=== PATIENT | male | born 1940 | race Caucasian/White ===

== ENCOUNTER → 2017-12-31 08:11 | Outpatient (CLI) | payer OTHER, SELFPAY ==
[2017-12-31 09:31] LABS: Add Manual Diff / Slide Review NO; Basophils Percent Auto 0.3 % (0-2); Eosinophils Percent Auto 2.8 % (2-4); Hematocrit 44.4 % (41-53); Hemoglobin 15.3 g/dL (13.5-17.5); Lymphocytes Percent Auto 17.2 % (25-40); Mean Corpuscular HGB Conc 34.4 % (30-36); Mean Corpuscular Hemoglobin 31.9 PG (26-34); Mean Corpuscular Volume 92.8 fL (80-100); Monocytes Percent Auto 15.3 % (3-14); Neutrophils Absolute Auto 3200 /uL (3000-5900); Neutrophils Percent Auto 64.4 % (50-75); Platelet Count 129 X10^3/uL (150-400); Red Blood Cell Count 4.78 X10^6/uL (4.5-5.9); Red Cell Distribution Width 13.3 % (11.6-14.8)
[2017-12-31 09:56] LABS: Alanine Aminotransferase 32 IU/L (21-72); Albumin 4.2 g/dL (3.5-5.0); Alkaline Phosphatase 71 U/L (38-126); Aspartate Aminotransferase 28 IU/L (17-59); Blood Urea Nitrogen 26 mg/dL (9-20); Calcium 9.3 mg/dL (8.4-10.2); Carbon Dioxide 32 mmol/L (22-32); Chloride 103 mmol/L (98-107); Cholesterol 158 mg/dL (140-199); Estimated Glomerular Filt Rate > 60.0 mL/min (>60); Globulin 2.1 g/dL (1.7-4.1); Glucose 87 mg/dL (80-110); HDL Cholesterol 38 mg/dL (40-60); HEMOLYSIS < 15 (0-50); LDL Cholesterol Calculated 98 mg/dL (<100); Potassium 4.5 mmol/L (3.4-5.1); Sodium 145 mmol/L (137-145); Total Protein 6.3 g/dL (6.3-8.2); Triglycerides 111 mg/dL (35-150)
[2017-12-31 10:18] LABS: Prostate Specific Antigen Scrn 0.824 ng/mL (0.1-4.0)
[2017-12-31 10:25] LABS: Thyroid Stimulating Hormone 3.42 uIU/mL (0.47-4.68)
== END ==
PROVIDERS: PCP Family Medicine; Visit Provider Family Medicine
DX: E78.5 Hyperlipidemia, unspecified (principal); N40.0 Benign prostatic hyperplasia without lower urinary tract symptoms; Z12.5 Encounter for screening for malignant neoplasm of prostate
CPT/HCPCS: 36415; 80053; 80061; 84443; 85025; G0103

== ENCOUNTER → 2018-01-08 13:06 | Outpatient (CLI) | payer OTHER, SELFPAY ==
[2018-01-13 15:32] LABS: Fecal Immunochemical Test NOT DETECTED
== END ==
PROVIDERS: PCP Family Medicine; Visit Provider Family Medicine
DX: Z12.11 Encounter for screening for malignant neoplasm of colon (principal)
CPT/HCPCS: 82274

== ENCOUNTER → 2018-06-24 08:03 | Outpatient (CLI) | payer MEDICARE, SELFPAY ==
[2018-06-24 09:24] LABS: Add Manual Diff / Slide Review NO; Basophils Absolute Auto 0 /uL (0-100); Basophils Percent Auto 0.3 % (0-2); Eosinophils Absolute Auto 200 /uL (0-450); Eosinophils Percent Auto 3.4 % (2-4); Hemoglobin 15.2 g/dL (13.5-17.5); Lymphocytes Absolute Auto 900 /uL (1100-4500); Lymphocytes Percent Auto 20.7 % (25-40); Mean Corpuscular HGB Conc 33.8 % (30-36); Mean Corpuscular Hemoglobin 31.9 PG (26-34); Mean Corpuscular Volume 94.2 fL (80-100); Monocytes Absolute Auto 700 /uL (0-900); Monocytes Percent Auto 15.5 % (3-14); Neutrophils Absolute Auto 2800 /uL (1500-7000); Neutrophils Percent Auto 60.1 % (50-75); Platelet Count 125 X10^3/uL (150-400); Red Blood Cell Count 4.78 X10^6/uL (4.5-5.9); Red Cell Distribution Width 13.6 % (11.6-14.8); White Blood Cell Count 4.6 X10^3/uL (4.5-11.0)
[2018-06-24 09:31] LABS: Alanine Aminotransferase 25 IU/L (21-72); Albumin 4.3 g/dL (3.5-5.0); Alkaline Phosphatase 68 U/L (38-126); Aspartate Aminotransferase 28 IU/L (17-59); Bilirubin Total 0.8 mg/dL (0.2-1.3); Blood Urea Nitrogen 25 mg/dL (9-20); Calcium 9.3 mg/dL (8.4-10.2); Carbon Dioxide 31 mmol/L (22-32); Chloride 102 mmol/L (98-107); Estimated Glomerular Filt Rate > 60.0 mL/min (>60); Globulin 2.1 g/dL (1.7-4.1); Glucose 84 mg/dL (80-110); HEMOLYSIS < 15 (0-50); Potassium 4.3 mmol/L (3.4-5.1); Sodium 140 mmol/L (137-145); Total Protein 6.4 g/dL (6.3-8.2)
[2018-06-26 13:10] LABS: Beta-2-Microglobulin 2.63 mg/L (< 2.52)
[2018-06-26 13:50] LABS: Free Kappa Light Chain 10.1 mg/L (3.3-19.4); Free Kappa/ Lambda Ratio 1.19 (0.26-1.65); Free Lambda 8.4 mg/L (5.7-26.3)
[2018-07-03 00:45] LABS: Albumin 4.1 g/dL (3.8-4.8); Alpha 1 Globulin 0.3 g/dL (0.2-0.3); Alpha 2 Globulin 0.7 g/dL (0.5-0.9); Beta 1 Globulin 0.4 g/dL (0.4-0.6); Gamma Globulin 0.4 g/dL (0.8-1.7); Protein, Total 6.1 g/dL (6.1-8.1)
== END ==
PROVIDERS: PCP Family Medicine
DX: C85.90 Non-Hodgkin lymphoma, unspecified, unspecified site (principal)
CPT/HCPCS: 36415; 80053; 82232; 83883; 84155; 84165; 85025

== ENCOUNTER → 2018-12-28 07:38 | Outpatient (CLI) | payer MEDICARE, SELFPAY ==
[2018-12-28 08:17] LABS: Alanine Aminotransferase 27 IU/L (21-72); Albumin Globulin Ratio 1.8 (1.0-2.8); Alkaline Phosphatase 79 U/L (38-126); Aspartate Aminotransferase 27 IU/L (17-59); Bilirubin Total 0.7 mg/dL (0.2-1.3); Blood Urea Nitrogen 27 mg/dL (9-20); Calcium 9.4 mg/dL (8.4-10.2); Carbon Dioxide 34 mmol/L (22-32); Chloride 102 mmol/L (98-107); Cholesterol 186 mg/dL (140-199); Estimated Glomerular Filt Rate > 60.0 mL/min (>60); Globulin 2.2 g/dL (1.7-4.1); Glucose 91 mg/dL (80-110); HDL Cholesterol 36 mg/dL (40-60); HEMOLYSIS < 15 (0-50); LDL Cholesterol Calculated 117 mg/dL (<100); Potassium 4.5 mmol/L (3.4-5.1); Sodium 140 mmol/L (137-145); Total Protein 6.2 g/dL (6.3-8.2); Triglycerides 165 mg/dL (35-150)
[2018-12-28 08:19] LABS: Add Manual Diff / Slide Review NO; Basophils Absolute Auto 0 /uL (0-100); Basophils Percent Auto 0.4 % (0-2); Eosinophils Absolute Auto 300 /uL (0-450); Hemoglobin 15.3 g/dL (13.5-17.5); Lymphocytes Absolute Auto 800 /uL (1100-4500); Lymphocytes Percent Auto 16.8 % (25-40); Mean Corpuscular HGB Conc 33.9 % (30-36); Mean Corpuscular Volume 94.4 fL (80-100); Monocytes Absolute Auto 700 /uL (0-900); Monocytes Percent Auto 14.7 % (3-14); Neutrophils Absolute Auto 3200 /uL (1500-7000); Neutrophils Percent Auto 63.1 % (50-75); Platelet Count 107 X10^3/uL (150-400); Red Blood Cell Count 4.77 X10^6/uL (4.5-5.9); Red Cell Distribution Width 13.2 % (11.6-14.8)
[2018-12-28 08:45] LABS: Prostate Specific Antigen Scrn 0.801 ng/mL (0.1-4.0)
[2018-12-28 09:24] LABS: TSH w/ Reflex to FT4 4.51 uIU/mL (0.47-4.68)
== END ==
PROVIDERS: PCP Family Medicine; Visit Provider Family Medicine
DX: C85.90 Non-Hodgkin lymphoma, unspecified, unspecified site (principal); E78.5 Hyperlipidemia, unspecified; N40.0 Benign prostatic hyperplasia without lower urinary tract symptoms; Z12.5 Encounter for screening for malignant neoplasm of prostate
CPT/HCPCS: 36415; 80053; 80061; 84443; 85025; G0103

== ENCOUNTER → 2019-09-28 16:37 | Oncology outpatient (ONC) | payer MEDICARE, SELFPAY ==
[2018-07-08 10:46] VITALS: BP 112/62; PULSE 67; RESP 18; TEMP 36.4; O2SAT 96
--- NOTE | 2018-07-08 15:19 | ONC.PN ---
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 Previous treatment: 1. Six cycles of Treanda and Rituxan finishing February 2010. 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 2. Maintenance Rituxan finishing in February 2012. Interval history: The patient is a 77-year-old man who returns today for follow-up. Since his last visit here a year ago, he has been feeling generally well and has no specific complaints today. His strength and energy level been stable. He has not noticed any adenopathy. No fevers chills or sweats. No shortness of breath or cough. No GI complaints. He has not had any recurrence of his neuropathy symptoms. Overall, he is feeling quite well. His medications include Flomax Lipitor and Proscar. He does take quinine and a multivitamin as needed. - Patient Self-Reported Symptoms SR Musculoskeletal issues: Muscle pain or cramps Home Medications and Allergies Home Medications Medication Instructions Recorded Confirmed Type CA PANTOTHENATE/FOLIC ACID/VIT 1 tab PO QDAY #0 08/10/12 07/08/18 History (MULTIVITAMIN) [QUININE SULFATE ] 300 mg PO QDAY #120 tab 01/02/18 07/08/18 Rx atorvastatin 10 mg tablet 10 mg PO QPM #90 mg 05/18/18 07/08/18 Rx finasteride 5 mg tablet 5 mg PO QDAY #90 tab 05/18/18 07/08/18 Rx tamsulosin 0.4 mg capsule 0.8 mg PO QDAY #180 tab 05/18/18 07/08/18 Rx magnesium oxide 07/08/18 History Allergies Allergy/AdvReac Type Severity Reaction Status Date / Time No Known Drug Allergies Allergy Verified 01/02/18 09:21 Exam Vital signs: Vital Signs Temp Pulse Resp BP Pulse Ox 07/08/18 10:46 97.6 F 67 18 112/62 96 Intake and Output 07/07/18 07/08/18 07/08/18 23:59 07:59 15:59 Other: Weight 86.5 kg Patient Weight 07/08/18 23:59 Weight 86.5 kg - Constitutional positive no acute distress, positive average body habitus - Routine HEENT Exam Head: Present: normocephalic, atraumatic Eye: Present: EOMI, PERRL. Absent: conjunctival icterus, scleral injection ENT: Present: mucous membranes moist, oropharynx clear - Routine Neck Exam Present: supple. Absent: lymphadenopathy, thyromegaly - Routine Chest/Breast/Axilla Exam Axillae: Absent: lymphadenopathy - Routine Respiratory Exam Present: Clear to auscultation bilaterally. Absent: rales, wheezes - Routine Cardiovascular Exam Present: RRR, S1, S2. Absent: murmur - Routine Abdominal Exam Present: soft, normoactive bowel sounds. Absent: tenderness, organomegaly, mass - Routine Extremities Exam Absent: cyanosis, clubbing, edema - Routine Back/Spine Exam Back/Spine: Absent: paraspinal tenderness, vertebral tenderness - Routine Skin Exam Present: intact. 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 He is about 6 and half years out from a maintenance therapy. He has no evidence of recurrence of disease. He will return to clinic in 1 year for follow-up.
[2019-09-28 15:59] VITALS: BP 118/54; PULSE 64; RESP 16; TEMP 36.7; O2SAT 96
--- NOTE | 2019-09-28 16:45 | ONC.PN ---
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 Mr. kyleigh gallegos returns today for follow-up of low-grade non-Hodgkin's lymphoma. He was diagnosed with a marginal zone lymphoma versus lymphoplasmacytic lymphoma in 1999 and . 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 This occurred quickly. He then had maintenance rituximab through February 2012 and has been off treatment ever since. Recently he has been coming for annual follow-up exams. He has not had any scans since 2013. Today is basically feeling good. He denies any pain, bleeding, localized weakness, fever, chills, nausea, vomiting, cough or shortness of breath. All other systems are negative. His past medical history including family and social history are reviewed from the previous notes in the chart. He has no known drug allergies. - Patient Self-Reported Symptoms SR Genitourinary issues: Frequent urination SR Musculoskeletal issues: Muscle pain or cramps Home Medications and Allergies Home Medications Medication Instructions Recorded Confirmed Type CA PANTOTHENATE/FOLIC ACID/VIT 1 tab PO QDAY #0 08/10/12 01/04/19 History (MULTIVITAMIN) magnesium oxide 07/08/18 01/04/19 History QUININE SULFATE 300 mg PO QDAY #90 tab 01/04/19 01/04/19 Rx atorvastatin 10 mg tablet 10 mg PO QPM #90 mg 01/04/19 01/04/19 Rx finasteride 5 mg tablet 5 mg PO QDAY #90 tab 01/04/19 01/04/19 Rx tamsulosin 0.4 mg capsule 0.8 mg PO QDAY #180 tab 01/04/19 01/04/19 Rx Allergies Allergy/AdvReac Type Severity Reaction Status Date / Time No Known Drug Allergies Allergy Verified 01/04/19 09:25 Exam Vital signs: Vital Signs Temp Pulse Resp BP Pulse Ox 09/28/19 15:59 98.0 F 64 16 118/54 L 96 Intake and Output 09/28/19 09/28/19 09/28/19 07:59 15:59 23:59 Other: Weight 86.7 kg Patient Weight 09/28/19 23:59 Weight 86.7 kg Narrative: He was awake, alert and oriented x3. Was fully ambulatory and in no acute distress. There was no palpable lymphadenopathy in the cervical, supraclavicular, axillary, inguinal femoral regions. Abdomen was soft and nontender without any palpable hepatosplenomegaly or masses. Results - Imaging Additional studies: Procedures Colonoscopy (04/29/14) ENDO RECTUM POLYPECTOMY (05/11/09) HEAD SOFT TISS X-RAY NEC (10/11/09) INSERTION OF TOTALLY IMPLANTABLE VASC ACCESS DEVIC (10/11/09) Incision with removal of foreign body or device from skin and subcutaneous tissue (07/10/11) Assessment and Plan (1) Non-Hodgkin's lymphoma Status: None He has no clinical findings that would suggest significant progression of his underlying low-grade non-Hodgkin's lymphoma. We will get blood work today to include a CBC and CMP. If these are abnormal, though be appropriately pursued. If his labs are stable will plan to see him back in a year for follow-up with the same labs prior to that visit. The plan would be to watch him off treatment unless she shows evidence of clinically significant disease progression in the future. He was advised to try to exercise at least 3 hours a week any to healthy diet. He is doing both of these things currently.
[2019-09-28 17:26] LABS: Add Manual Diff / Slide Review NO; Basophils Absolute Auto 0 /uL (0-100); Basophils Percent Auto 0.4 % (0-2); Eosinophils Absolute Auto 200 /uL (0-450); Eosinophils Percent Auto 3.2 % (2-4); Hematocrit 40.2 % (41-53); Hemoglobin 13.8 g/dL (13.5-17.5); Lymphocytes Absolute Auto 1100 /uL (1100-4500); Lymphocytes Percent Auto 17.5 % (25-40); Mean Corpuscular HGB Conc 34.3 % (30-36); Mean Corpuscular Hemoglobin 32.1 PG (26-34); Mean Corpuscular Volume 93.7 fL (80-100); Monocytes Absolute Auto 900 /uL (0-900); Monocytes Percent Auto 15.2 % (3-14); Neutrophils Absolute Auto 3900 /uL (1500-7000); Neutrophils Percent Auto 63.7 % (50-75); Platelet Count 114 X10^3/uL (150-400); Red Blood Cell Count 4.29 X10^6/uL (4.5-5.9); Red Cell Distribution Width 13.4 % (11.6-14.8); White Blood Cell Count 6.1 X10^3/uL (4.5-11.0)
[2019-09-28 17:41] LABS: Alanine Aminotransferase 19 IU/L (<50); Albumin 3.8 g/dL (3.5-5.0); Alkaline Phosphatase 74 U/L (38-126); Aspartate Aminotransferase 29 IU/L (17-59); Bilirubin Total 0.4 mg/dL (0.2-1.3); Blood Urea Nitrogen 36 mg/dL (9-20); Calcium 9.1 mg/dL (8.4-10.2); Carbon Dioxide 28 mmol/L (22-32); Chloride 104 mmol/L (98-107); Estimated Glomerular Filt Rate 58.9 mL/min (>60); Globulin 1.9 g/dL (1.7-4.1); Glucose 80 mg/dL (80-110); HEMOLYSIS < 15 (0-50); Potassium 4.4 mmol/L (3.4-5.1); Sodium 137 mmol/L (137-145); Total Protein 5.7 g/dL (6.3-8.2)
--- NOTE | 2020-03-08 11:53 | ONC.SCHED ---
Patient called to cancel his apt. in September 2020; stated that his primary doctor will monitor his labs and if he needs to be re-referred back here he will do that if needed. Doesn't feel the need to come unless there is an issue arise.
--- NOTE | 2020-08-16 08:51 | PC.NURSE ---
LABS FOR SEPTEMBER 27: MESSAGE RECEIVED FROM [facility] WR[employer]PER THAT PATIENT REQUESTED LAB ORDERS TO BE REMOVED HE IS RECEIVING HIS CARE ELSEWHERE. LABS CANCELED.
== END ==
PROVIDERS: PCP Family Medicine; Visit Provider Internal Medicine
DX: Z08 Encounter for follow-up examination after completed treatment for malignant neoplasm (principal); Z85.72 Personal history of non-Hodgkin lymphomas
CPT/HCPCS: 36415; 80053; 85025; 99213; 99214

== ENCOUNTER → 2020-01-12 08:35 | Outpatient (CLI) | payer MEDICARE, SELFPAY ==
[2020-01-12 10:21] LABS: Cholesterol 157 mg/dL (140-199); HDL Cholesterol 36 mg/dL (40-60); LDL Cholesterol Calculated 99 mg/dL (<100); Triglycerides 110 mg/dL (35-150)
== END ==
PROVIDERS: PCP Family Medicine; Referring Provider Family Medicine; Visit Provider Family Medicine
DX: E78.5 Hyperlipidemia, unspecified (principal)
CPT/HCPCS: 36415; 80061

== ENCOUNTER → 2020-04-07 15:42 | Outpatient (CLI) | payer MEDICARE, SELFPAY ==
[2020-04-07] MEDS: COVID-19 VACC #1, MRNA(MOD) 100 MCG/0.5 ML VIAL IM (15:55)
== END ==
PROVIDERS: PCP Family Medicine; Visit Provider Internal Medicine
DX: Z23 Encounter for immunization (principal)
CPT/HCPCS: 0011A; 91301

== ENCOUNTER → 2020-05-05 15:20 | Outpatient (CLI) | payer MEDICARE, SELFPAY ==
[2020-05-05] MEDS: COVID-19 VACC #2, MRNA(MOD) 100 MCG/0.5 ML VIAL IM (15:27)
== END ==
PROVIDERS: PCP Family Medicine; Visit Provider Internal Medicine
DX: Z23 Encounter for immunization (principal)
CPT/HCPCS: 0012A; 91301

== ENCOUNTER → 2020-08-14 16:27 | Outpatient (CLI) | payer OTHER, SELFPAY ==
[2020-08-14 17:11] LABS: COVID19 -Nasal RAPID Negative (Negative)
== END ==
PROVIDERS: PCP Family Medicine; Visit Provider Family Medicine
DX: Z20.822 Contact with and (suspected) exposure to COVID-19 (principal); R05 Cough
CPT/HCPCS: 87635

== ENCOUNTER → 2020-08-15 10:02 | Outpatient (CLI) | payer OTHER, SELFPAY ==
--- NOTE | 2020-08-15 10:07 | DI.RAD.S_ITS ---
PROCEDURE: XR CHEST 2V INDICATIONS: cough TECHNIQUE: 2 views of the chest were acquired. COMPARISON: [facility], , CHEST 1 VIEW, 10/11/2009, 14:38. FINDINGS: Surgical changes and devices: None. Lungs and pleura: Lungs are clear considering pectus excavatum chest wall morphology. No pleural effusions or pneumothorax. Mediastinum: Mediastinal contours are normal. Heart size is normal. Bones and chest wall: No suspicious bony abnormalities. Soft tissues appear unremarkable. IMPRESSION: Pectus excavatum is prominent, which distorts the cardiac silhouette and also alters the appearance of the lung parenchyma. No definite acute disease is seen when this is taken into account. Dictated by: Mark Anthony Mckinney M.D. on 08/15/2020 at 10:46 Approved by: Mark Anthony Mckinney M.D. on 08/15/2020 at 10:46
== END ==
PROVIDERS: PCP Family Medicine; Referring Provider Family Medicine; Visit Provider Family Medicine
DX: R05 Cough (principal)
CPT/HCPCS: 71046

== ENCOUNTER → 2020-09-21 11:07 | Outpatient (CLI) | payer OTHER, SELFPAY ==
[2020-09-22 14:31] LABS: Fecal Immunochemical Test Negative (Negative)
== END ==
PROVIDERS: PCP Family Medicine; Referring Provider Family Medicine; Visit Provider Family Medicine
DX: Z12.11 Encounter for screening for malignant neoplasm of colon (principal)
CPT/HCPCS: 82274

== ENCOUNTER → 2021-03-13 08:46 | Outpatient (CLI) | payer OTHER, SELFPAY ==
[2021-03-13 09:48] LABS: Add Manual Diff / Slide Review NO; Basophils Absolute Auto 0 /uL (0-100); Basophils Percent Auto 0.4 % (0-2); Eosinophils Absolute Auto 100 /uL (0-450); Eosinophils Percent Auto 1.9 % (2-4); Hemoglobin 15.1 g/dL (13.5-17.5); Lymphocytes Absolute Auto 900 /uL (1100-4500); Lymphocytes Percent Auto 18.1 % (25-40); Mean Corpuscular HGB Conc 34.3 % (30-36); Mean Corpuscular Hemoglobin 31.8 PG (26-34); Mean Corpuscular Volume 92.8 fL (80-100); Monocytes Absolute Auto 800 /uL (0-900); Monocytes Percent Auto 15.2 % (3-14); Neutrophils Absolute Auto 3200 /uL (1500-7000); Neutrophils Percent Auto 64.4 % (50-75); Platelet Count 113 X10^3/uL (150-400); Red Blood Cell Count 4.75 X10^6/uL (4.5-5.9); Red Cell Distribution Width 13.4 % (11.6-14.8)
[2021-03-13 10:20] LABS: Alanine Aminotransferase 19 IU/L (<50); Albumin 3.8 g/dL (3.5-5.0); Albumin Globulin Ratio 1.9 (1.0-2.8); Alkaline Phosphatase 68 U/L (38-126); Aspartate Aminotransferase 26 IU/L (17-59); BUN Creatinine Ratio 23.4 (6-22); Bilirubin Total 0.9 mg/dL (0.2-1.3); Blood Urea Nitrogen 26 mg/dL (9-20); Calcium 9.4 mg/dL (8.4-10.2); Carbon Dioxide 34 mmol/L (22-32); Chloride 104 mmol/L (98-107); Cholesterol 174 mg/dL (140-199); Estimated Glomerular Filt Rate > 60.0 mL/min (>60); Glucose 93 mg/dL (80-110); HDL Cholesterol 37 mg/dL (40-60); HEMOLYSIS < 15 (0-50); LDL Cholesterol Calculated 114 mg/dL (<100); Potassium 4.5 mmol/L (3.4-5.1); Sodium 137 mmol/L (137-145); Total Protein 5.8 g/dL (6.3-8.2); Triglycerides 116 mg/dL (35-150)
== END ==
PROVIDERS: PCP Family Medicine; Referring Provider Family Medicine; Visit Provider Family Medicine
DX: C85.90 Non-Hodgkin lymphoma, unspecified, unspecified site (principal); E78.5 Hyperlipidemia, unspecified; N40.0 Benign prostatic hyperplasia without lower urinary tract symptoms
CPT/HCPCS: 36415; 80053; 80061; 84443; 85025

== ENCOUNTER → 2022-02-28 08:20 | Outpatient (CLI) | payer OTHER, SELFPAY ==
[2022-02-28 09:19] LABS: Add Manual Diff / Slide Review NO; Basophils Absolute Auto 0 /uL (0-100); Basophils Percent Auto 0.3 % (0-2); Eosinophils Absolute Auto 100 /uL (0-450); Eosinophils Percent Auto 2.8 % (2-4); Hemoglobin 14.8 g/dL (13.5-17.5); Lymphocytes Absolute Auto 1100 /uL (1100-4500); Lymphocytes Percent Auto 21.2 % (25-40); Mean Corpuscular HGB Conc 32.9 % (30-36); Mean Corpuscular Hemoglobin 30.7 PG (26-34); Mean Corpuscular Volume 93.4 fL (80-100); Monocytes Absolute Auto 700 /uL (0-900); Monocytes Percent Auto 14.3 % (3-14); Neutrophils Absolute Auto 3100 /uL (1500-7000); Neutrophils Percent Auto 61.4 % (50-75); Platelet Count 122 X10^3/uL (150-400); Red Blood Cell Count 4.82 X10^6/uL (4.5-5.9); Red Cell Distribution Width 13.6 % (11.6-14.8); White Blood Cell Count 5.1 X10^3/uL (4.5-11.0)
[2022-02-28 09:32] LABS: Alanine Aminotransferase 24 IU/L (<50); Albumin Globulin Ratio 1.6 (1.0-2.8); Alkaline Phosphatase 78 U/L (38-126); Aspartate Aminotransferase 26 IU/L (17-59); BUN Creatinine Ratio 26.7 (6-22); Bilirubin Total 0.9 mg/dL (0.2-1.3); Blood Urea Nitrogen 28 mg/dL (9-20); Calcium 8.9 mg/dL (8.4-10.2); Carbon Dioxide 29 mmol/L (22-32); Chloride 101 mmol/L (98-107); Cholesterol 208 mg/dL (140-199); Estimated Glomerular Filt Rate > 60 mL/min (>60); Globulin 2.5 g/dL (1.7-4.1); Glucose 90 mg/dL (80-110); HDL Cholesterol 36 mg/dL (40-60); HEMOLYSIS < 15 (0-50); LDL Cholesterol Calculated 134 mg/dL (<100); Potassium 4.3 mmol/L (3.4-5.1); Sodium 137 mmol/L (137-145); Total Protein 6.5 g/dL (6.3-8.2); Triglycerides 189 mg/dL (35-150)
[2022-02-28 10:02] LABS: Prostate Specific Antigen Scrn 0.613 ng/mL (0.1-4.0)
[2022-02-28 10:03] LABS: TSH w/ Reflex to FT4 4.16 uIU/mL (0.47-4.68)
== END ==
PROVIDERS: PCP Family Medicine; Referring Provider Family Medicine; Visit Provider Family Medicine
DX: C85.90 Non-Hodgkin lymphoma, unspecified, unspecified site (principal); E78.5 Hyperlipidemia, unspecified; Z12.5 Encounter for screening for malignant neoplasm of prostate; N40.0 Benign prostatic hyperplasia without lower urinary tract symptoms
CPT/HCPCS: 36415; 80053; 80061; 84443; 85025; G0103

== ENCOUNTER → 2022-03-27 10:39 | Outpatient (CLI) | payer OTHER, SELFPAY ==
--- NOTE | 2022-03-27 10:41 | DI.NM.S_ITS ---
PROCEDURE: NM MITCHELL PERF SPECT REST & STR Rest and exercise myocardial perfusion SPECT with gated imaging and ejection fraction RADIOPHARMACEUTICAL: 25.7 mCi Tc-99m sestamibi IV at rest and 26.6 mCi Tc-99m sestamibi IV at peak exercise. A two day-protocol was performed. INDICATIONS: new onset A.fib TECHNIQUE: Radiopharmaceutical was injected at peak stress test, and also at rest. SPECT images were obtained. SPECT myocardial perfusion images were displayed in short axis, horizontal long axis, and vertical long axis views. Gated images were reviewed using addwish software. COMPARISON: None. CARDIAC STRESS: A standard [place] treadmill exercise tolerance test was performed by the patient under the supervision of an attending staff. The patient exercised for 6 minutes and 31 seconds; functional aerobic impairment (DI) is -20%. Hemodynamic data: There is normal blood pressure and heart rate response to exercise stress. Patient achieved 106% of maximum predicted heart rate at peak exercise. Symptoms: Patient denied chest pain during exercise. EKG: Resting ECG showed normal sinus rhythm. No diagnostic EKG changes of ischemia with exercise; Atrial flutter noticed during recovery. FINDINGS: Raw data: There is good myocardial labeling by radiotracer. No significant motion artifacts. Left ventricle function: Gated images demonstrate normal left ventricle wall thickening. No segmental wall motion abnormality. No transient ischemic dilation; TID is 0.84 (normal less than 1.3). The left ventricle resting end-diastolic volume is 107mL. Left ventricle stress ejection fraction is 71%; normal values are above 45%. Myocardial perfusion: No perfusion defects on stress prone imaging. IMPRESSION: Low risk, normal treadmill nuclear stress test from ischemia standpoint. Atrial flutter during recovery. 1) No perfusion evidence of ischemia or infarction. 2) Normal left ventricular size, wall motion, and systolic function (EF post stress 71%). 3) No diagnostic ST changes with exercise. 4) No angina during the study. 5) Atrial flutter during recovery. 6) Good exercise tolerance (7.3METs, DI -20%). Target heart rate achieved. Appropriate BP response to exercise. 7) No prior nuclear stress test available for comparison. Dictated by: Beth Dutton MD on 03/28/2022 at 14:39 Approved by: Beth Dutton MD on 03/28/2022 at 14:44
[2022-03-27 11:46] LABS: COVID19 -Nasal RAPID Negative (Negative)
== END ==
PROVIDERS: PCP Family Medicine; Referring Provider Family Medicine; Visit Provider Family Medicine
DX: I48.91 Unspecified atrial fibrillation (principal); Z20.822 Contact with and (suspected) exposure to COVID-19
CPT/HCPCS: 78452; 87635; 93017; A9502

== ENCOUNTER → 2022-03-28 07:02 | Outpatient (CLI) | payer OTHER, SELFPAY ==
--- NOTE | 2022-03-28 07:03 | DI.ECHO.S_ITS ---
[facility] +---------+ : : [address] : [place] [address] : : : : [id number] : : : : Phone: [phone]+ Echocardiogram Report + + :Name: KIM CHAUDHARI Study Date: 03/28/2022 Height: 72.5 in : :[facility] ReadingLocation: Weight: 187 lb : : Gender: Male BSA: 2.1 m2 : :: 1940 Age: 81 yrs BP: 155/100 mmHg: :Reason For Study: ATRIAL FIBRILLATION : :Ordering Physician: JUAN, : :JOEY Performed By: Lisette Stoll : :Referring: JOEY MARTINEZ : + + Interpretation Summary 1) Normal left ventricular thickness, size, wall motion, and systolic function (EF 60-65%). 2) Normal right ventricular size and function. 3) There is mild mitral regurgitation that is directed posteriorly. 4) There is mild aortic regurgitation. 5) No prior Echo available for comparison. Procedure: A two-dimensional transthoracic echocardiogram with color flow and Doppler was performed. The study quality was technically adequate. A contrast injection of Definity was performed to improve assessment of LV function. Contrast was injected into an intravenous site in the left arm. A total of 1.5 cc of contrast was given. The patient was in atrial fibrillation with heart rates between 65-120 bpm during the exam. Left Ventricle: The left ventricle is normal in size. Left ventricular wall thickness is at the upper limits of normal. The ejection fraction is estimated to be 60-65%. Left ventricular systolic function appears normal without focal wall motion abnormalities. Diastolic function could not be accurately assessed due to atrial fibrillation. Right Ventricle: The right ventricle is normal in size and function. Atria: The left atrial size is normal. Right atrial size is normal. There is no Doppler evidence for an interatrial shunt. Mitral Valve: There is a flat closure plane of the the mitral valve leaflets. There is mild mitral regurgitation. The mitral regurgitant jet is eccentrically directed. Aortic Valve: The aortic valve is trileaflet. The aortic valve opens well. There is no aortic valve stenosis. There is mild aortic regurgitation. Tricuspid Valve: The tricuspid valve is normal in structure and function. There is trace tricuspid regurgitation. Pulmonic Valve: The pulmonic valve leaflets are thin and pliable; valve motion is normal. There is trace pulmonic regurgitation. Great Vessels: The aortic root is normal size. The dimensions of the ascending aorta are normal. The IVC is of normal diameter and collapses greater than 50% with a sniff. This suggests a low right atrial pressure of 3 mm Hg. Pericardium/ Pleura There is no pericardial effusion. There is no pleural effusion. MMode/2D Measurements & Calculations LVIDd: 3.9 cm LVOT diam: 2.1 cm LVIDs: 2.4 cm Ao root diam: 3.0 cm FS: 39.1 % asc Aorta Diam: 3.2 cm IVSd: 1.0 cm Ao Arch Diam (Prox Trans): 2.6 cm LVPWd: 1.1 cm LV curran. diameter/BSA (cm/m^2): 1.9 LV sys. diameter/BSA (cm/m^2): 1.1 LA A2 area: 21.0 cm2 RA long axis: 5.0 cm LA A4 area: 19.0 cm2 RA area: 14.1 cm2 LA length (vol): 5.6 cm RA vol: 33.6 ml LA vol: 60.0 ml RA : 16.2 ml/m2 LA vol index: 28.8 ml/m2 IVC diam: 0.75 cm RVD1 (basal): 3.1 cm RVD2 (mid): 3.0 cm TAPSE: 1.9 cm Doppler Measurements & Calculations Ao V2 max: 103.5 cm/sec LVOT Max Stefan: 92.8 cm/sec Ao V2 mean: 76.7 cm/sec LV V1 max P.4 mmHg Ao max P.3 mmHg LV V1 VTI: 17.3 cm Ao mean P.6 mmHg GUCCI(I,D): 2.7 cm2 Ao V2 VTI: 22.7 cm GUCCI(V,D): 3.1 cm2 sev ratio: 0.76 GUCCI indexed to BSA (cm^2/m^2): 1.3 MV E max stefan: 95.6 cm/sec PA V2 max: 70.1 cm/sec MV A max stefan: 12.6 cm/sec PA V2 mean: 49.0 cm/sec MV E/A: 7.6 PA mean P.1 mmHg Med Peak E' Stefan: 8.4 cm/sec PA pr(Accel): 25.9 mmHg E/E' med: 11.4 Lat Peak E' Stefan: 14.7 cm/sec E/E' lat: 6.5 E/e' average: 9.0 MV dec time: 0.25 sec SV(LVOT): 60.5 ml Reading Physician:04:37 PM
== END ==
PROVIDERS: PCP Family Medicine; Referring Provider Family Medicine; Visit Provider Family Medicine
DX: I08.0 Rheumatic disorders of both mitral and aortic valves (principal); I48.91 Unspecified atrial fibrillation
CPT/HCPCS: 93306

== ENCOUNTER → 2022-04-15 07:43 | Outpatient (CLI) | payer OTHER, SELFPAY ==
--- NOTE | 2022-05-06 12:19 | P.HOLT.S_ITS ---
Line Department Supervisor Report Referral & Results Date Patient Seen: 04/15/22 Requesting provider: Flakito Oliver Indication: Atrial fibrillation Duration of monitoring (days): 14 Diary information: There were no patient events to review Data: Minimum heart rate identified was 37 beats per minute at 03:36 on 04/23/2022 Maximum sinus heart rate was 133 beats per minute at 12:25 on 04/27/2022 Maximum overall heart rate was 177 beats per minute at 11:22 on April 27, 2022 during a run of atrial fibrillation/flutter Proximally 1.2% of identified beats were supraventricular ectopic in origin which classify them as occasional Less than 1% of identified beats were ventricular ectopic in origin which would classify them as rare There was 1 9 beat run of nonsustained monomorphic ventricular tachycardia Patient did experience atrial fibrillation/flutter during this study that comprised proximally 24% of identified beats. Heart rate ranges during these times 40-177 beats per minute. Longest duration episode was 18 hours 1 minute in duration There were no pauses of 3 seconds or longer or episodes of SVT identified Impression: 14 day satellite project site monitor demonstrating 24% burden AFib/atrial flutter with heart rates as above Also occasional PACs
== END ==
PROVIDERS: PCP Family Medicine; Referring Provider Family Medicine; Visit Provider Family Medicine
DX: I48.91 Unspecified atrial fibrillation (principal)
CPT/HCPCS: 93246; 93248

== ENCOUNTER → 2022-07-26 11:04 | Outpatient (CLI) | payer OTHER, SELFPAY | PROVIDERS: PCP Family Medicine; Referring Provider Specialist; Visit Provider Specialist | DX: N40.0 Benign prostatic hyperplasia without lower urinary tract symptoms (principal) | CPT/HCPCS: 36415; 84153 ==

== ENCOUNTER → 2022-12-05 07:50 | Outpatient (CLI) | payer OTHER, SELFPAY ==
--- NOTE | 2022-12-05 07:51 | DI.RAD.S_ITS ---
PROCEDURE: XR CHEST 2V INDICATIONS: Cough TECHNIQUE: 2 views of the chest were acquired. COMPARISON: [facility], CR, XR CHEST 2V, 08/15/2020, 10:07. FINDINGS: Surgical changes and devices: None. Lungs and pleura: Lungs are clear. No pleural effusions or pneumothorax. Mediastinum: Mediastinal contours are normal. Heart size is normal. Bones and chest wall: No suspicious bony abnormalities. Soft tissues appear unremarkable. IMPRESSION: No acute cardiopulmonary abnormality is seen. Dictated by: Xavier Ortiz M.D. on 12/05/2022 at 9:37 Approved by: Xavier Ortiz M.D. on 12/05/2022 at 9:37
== END ==
PROVIDERS: PCP Family Medicine; Referring Provider Nurse Practitioner Family; Visit Provider Nurse Practitioner Family
DX: R05.9 Cough, unspecified (principal)
CPT/HCPCS: 71046

== ENCOUNTER 2022-12-26 11:02 | Emergency (ER) | payer OTHER, SELFPAY ==
[2022-12-26 11:14] VITALS: BP 120/65; PULSE 77; RESP 18; TEMP 36.5; O2SAT 97; BMI 25.0
--- NOTE | 2022-12-26 11:14 | DI.CT.S_ITS ---
PROCEDURE: CT HEAD/BRAIN WO CON INDICATIONS: head injury with head aches TECHNIQUE: Noncontrast 4.5 mm thick angled axial sections acquired from the foramen magnum to the vertex, with coronal and sagittal reformats. For radiation dose reduction, the following was used: automated exposure control, adjustment of mA and/or kV according to patient size. COMPARISON: None. FINDINGS: Image quality: Excellent. CSF spaces: Basal cisterns are patent. No extra-axial fluid collections. The ventricles are symmetric in size and shape. Brain: No intracranial bleeds or masses. There is cerebral volume loss for age, with resultant ventricular and sulcal prominence. There are periventricular and deep white matter chronic small vessel ischemic changes. There is intracranial internal carotid artery atherosclerosis. Skull and face: Calvarium and visualized facial bones appear intact, without suspicious lesions. Sinuses: There is focal mucosal thickening involving the anterior medial left maxillary sinus. Visualized sinuses and mastoids are otherwise relatively clear. IMPRESSION: No acute intracranial hemorrhage is seen. No acute intracranial process is seen. No displaced calvarial fracture can be seen. Dictated by: Valentino Valladares M.D. on 12/26/2022 at 10:38 Approved by: Valentino Valladares M.D. on 12/26/2022 at 10:39
--- NOTE | 2022-12-26 11:41 | ED.HA ---
HPI - Headache <Yuliet Breen PA-C - Last Filed: 12/26/22 15:57> General Chief Complaint: Headache Stated Complaint: on and off Headaches sent from doctors office Time Seen by Provider: 12/26/22 11:32 Mode of arrival: Ambulatory History of Present Illness HPI Narrative: Patient is an 82-year-old male with a history of AFib on apixaban who was sent from Dr. Oliver's office due to concern for left temporal pain over the past 3 days. Patient collided with a tree branch about 2 weeks ago and it knocked him to the ground. He did not pass out and did not immediately have pain but 3 days ago developed mild pain in his left nondenominational that slowly increased until last night when it was severe enough that he considered coming to the emergency department. He took Tylenol and laid down to rest and managed to fall asleep, when he awoke two hours later the pain was mostly gone and he did not come into the ER. He did not have a generalized headache, vertigo, nausea vomiting or visual changes when the pain was at its worst. Dr. Oliver asked him to come to the emergency department for a CT scan of his head given the headache in the setting of blood thinners after trauma. Today he rates his pain as a 0.5/10. Related Data Home Medications Medication Instructions Recorded Confirmed magnesium 250 mg tablet 250 mg PO DAILY 07/31/22 12/26/22 Previous Rx's Medication Instructions Recorded apixaban 5 mg tablet (Eliquis) 5 mg PO BID #180 tabs 05/01/22 atorvastatin 10 mg tablet (Lipitor) 10 mg PO QPM #90 tabs 05/01/22 finasteride 5 mg tablet 5 mg PO QDAY #90 tabs 05/01/22 tamsulosin 0.4 mg capsule (Flomax) 0.8 mg (2 x 0.4 mg) PO QDAY #180 05/01/22 tabs metoprolol succinate 50 mg 50 mg PO DAILY #90 tabs 05/16/22 tablet,extended release 24 hr Allergies Allergy/AdvReac Type Severity Reaction Status Date / Time No Known Drug Allergies Allergy Verified 12/26/22 10:04 Review of Systems <Yuliet Breen PA-C - Last Filed: 12/26/22 15:57> Review of Systems ROS Unobtainable: All systems reviewed & are unremarkable except as noted in HPI and below Patient History <Yuliet Breen PA-C - Last Filed: 12/26/22 15:57> Medical History Nocturia BPH w urinary obs/LUTS Cancer Cough Vision disorder Hearing deficit Asthma Depression Bipolar disorder Peripheral neuropathy (~2009) Plantar fasciitis (~1999) Chronic back pain Mumps Measles Chicken pox Thrombocytopenia (~2007) Tinnitus (~2009) Hearing loss (~2011) Benign prostatic hyperplasia Hemorrhoid (~2003) Colon polyps (~2009) Skin cancer (~2011) Lymphoma (~2008) Cramp of both lower extremities (12/27/15) Surgical History H/O vasectomy Anesthesia History of vein stripping (~2005) Status post colonoscopy (~2009) Status post colonoscopy (~2003) Family History Sister Age: 76 Cancer Sister Age: 73 Myelofibrosis Sarcoidosis Bone disease Father Cancer Mother Cancer Social History marital status: number of children: 0 Smoking Status: Never smoker alcohol intake: current (ON OCCASION ) substance use type: does not use Type(s) of exercise: bicycling frequency: 3-4 times per week Smoking Status: Never smoker Substance Use Type: does not use Exam <Yuliet Breen PA-C - Last Filed: 12/26/22 15:57> Narrative Exam Narrative: GENERAL: 82 year old patient appears stated age. Well-developed patient, in no distress. NEURO: Alert and oriented x3, mood/affect normal, normal speech, normal cognition. CN's (II-XII) grossly intact,. No gross motor deficit, 5/5 strength throughout, no gross sensory loss, normal gait. HEAD: Atraumatic. Normocephalic. EYES: Pupils equal round and reactive. Extraocular motions intact. No scleral icterus. No injection or drainage. ENT: Nose without bleeding or purulent drainage. Airway patent. RESPIRATORY: No distress or increased work of breathing EXTREMITIES: No edema or joint tenderness. SKIN: No rash or erythema of visible areas Initial Vital Signs Initial Vital Signs: Vital Signs Temperature 97.7 F 12/26/22 11:14 Pulse Rate 77 12/26/22 11:14 Respiratory Rate 18 12/26/22 11:14 Blood Pressure 120/65 12/26/22 11:14 Pulse Oximetry 97 12/26/22 11:14 Oxygen Delivery Method Room Air 12/26/22 11:14 <Wade Pardo DO - Last Filed: 12/26/22 15:58> Initial Vital Signs Initial Vital Signs: Vital Signs Temperature 97.7 F 12/26/22 11:14 Pulse Rate 77 12/26/22 11:14 Respiratory Rate 18 12/26/22 11:14 Blood Pressure 120/65 12/26/22 11:14 Pulse Oximetry 97 12/26/22 11:14 Oxygen Delivery Method Room Air 12/26/22 11:14 Course <Yuliet Breen PA-C - Last Filed: 12/26/22 15:57> Orders Ordered: ED Orders 12/26/22 11:14 CT head/brain wo con Stat Vital Signs Vital signs: Vital Signs - 8 hr 12/26/22 11:14 12/26/22 12:37 Temperature 97.7 F 98.2 F Pulse Rate 77 74 Respiratory Rate 18 20 Blood Pressure 120/65 96/58 L Pulse Oximetry 97 97 Oxygen Delivery Method Room Air Room Air <DO Kurtis Ledezma Last Filed: 12/26/22 15:58> Orders Ordered: ED Orders 12/26/22 11:14 CT head/brain wo con Stat Vital Signs Vital signs: Vital Signs - 8 hr 12/26/22 11:14 12/26/22 12:37 Temperature 97.7 F 98.2 F Pulse Rate 77 74 Respiratory Rate 18 20 Blood Pressure 120/65 96/58 L Pulse Oximetry 97 97 Oxygen Delivery Method Room Air Room Air MDM - Headache <JOEL Patel Last Filed: 12/26/22 15:57> Imaging Data CT scan - head: Radiologist's Impression: PROCEDURE: CT HEAD/BRAIN WO CON INDICATIONS: head injury with head aches TECHNIQUE: Noncontrast 4.5 mm thick angled axial sections acquired from the foramen magnum to the vertex, with coronal and sagittal reformats. For radiation dose reduction, the following was used: automated exposure control, adjustment of mA and/or kV according to patient size. COMPARISON: None. FINDINGS: Image quality: Excellent. CSF spaces: Basal cisterns are patent. No extra-axial fluid collections. The ventricles are symmetric in size and shape. Brain: No intracranial bleeds or masses. There is cerebral volume loss for age, with resultant ventricular and sulcal prominence. There are periventricular and deep white matter chronic small vessel ischemic changes. There is intracranial internal carotid artery atherosclerosis. Skull and face: Calvarium and visualized facial bones appear intact, without suspicious lesions. Sinuses: There is focal mucosal thickening involving the anterior medial left maxillary sinus. Visualized sinuses and mastoids are otherwise relatively clear. IMPRESSION: No acute intracranial hemorrhage is seen. No acute intracranial process is seen. No displaced calvarial fracture can be seen. Dictated by: Valentino Valladares M.D. on 12/26/2022 at 10:38 Approved by: Valentino Valladares M.D. on 12/26/2022 at 10:39 [facility] Narrative Medical decision making narrative: Multiple etiologies for patient's symptoms considered including, but not limited to: Intracranial hemorrhage, migraine, tension headache Patient's neurologic exam is very reassuring. His head CT does not show any intracranial hemorrhage or acute intracranial process. It does note focal mucosal thickening involving the anterior medial left maxillary sinus. I discussed these findings with the patient and his . He will follow up with Dr. Oliver in regards to further evaluation of his recent lightheadedness and his atrial fibrillation. Patient's symptoms improved over duration of stay with above-stated therapies. Findings and discharge diagnosis discussed with patient/family followed by verbalization of understanding Return precautions discussed with patient/family whom verbalize understanding of diagnosis and plan Discharge Plan Departure Patient Disposition: Home Clinical Impression: Headache around the eyes Afib Qualifiers: Atrial fibrillation type: unspecified Qualified Code(s): I48.91 - Unspecified atrial fibrillation Instructions: DI for Headache Activity Restrictions/Additional Instructions: * as we discussed, we do not see any evidence of bleeding or other acute process on your head CT today. Please follow-up with Dr. Oliver as scheduled. *What to do: *Please continue to take your regular medications as directed. [ ] New medication prescriptions sent to your pharmacy: [ ] [ ] New medication written as a paper prescription [x] No new medications given *Please follow up with your primary care provider in 2-3 days, call for an appointment. Let them know you were seen in the Emergency Department and that we ask that you be seen in follow up. We will electronically transmit a record of today's note if your PCP is in our system *If you do not have a primary care provider please contact the [facility] Resource line at [phone]. They will ask some questions about your medical history and help get you set up with a doctor in the community. *Return to Emergency Department if you should have any new, worsening or concerning symptoms, such as [fever greater than 101 F, shaking chills, worsening pain, persistent vomiting or other concerning symptoms]. Prescriptions: No Action metoprolol succinate 50 mg tablet extended release 24 hr 50 mg PO DAILY Qty: 90 3RF tamsulosin [Flomax] 0.4 mg capsule 0.8 mg PO QDAY Qty: 180 3RF finasteride 5 mg tablet 5 mg PO QDAY Qty: 90 3RF atorvastatin [Lipitor] 10 mg tablet 10 mg PO QPM Qty: 90 3RF Eliquis 5 mg tablet 5 mg PO BID Qty: 180 3RF magnesium 250 mg tablet 250 mg PO DAILY Referrals: Flakito Oliver MD [Primary Care Provider] - Stand Alone Forms: Patient Portal/API ED Sign-out <Wade Pardo, - Last Filed: 12/26/22 15:58> Cosign ED Attending Cosignature Attestation: Dr Pardo Co-Sign Statement: I was available for consultation during this patient's emergency department visit. This chart is signed by myself for administrative purposes only. I did not have direct contact with this patient during this visit. They were seen independently by the APC.
[2022-12-26 12:37] VITALS: BP 96/58; PULSE 74; RESP 20; TEMP 36.8; O2SAT 97
== END 2022-12-26 12:00 | disposition home or self-care (01) ==
PROVIDERS: Emergency Provider Physician Assistant; PCP Family Medicine
DX: R51.9 Headache, unspecified (principal); I48.91 Unspecified atrial fibrillation; Z79.01 Long term (current) use of anticoagulants
CPT/HCPCS: 70450; 99281; 99284

== ENCOUNTER → 2023-04-18 07:17 | Outpatient (CLI) | payer OTHER, SELFPAY ==
[2023-04-18 08:11] LABS: Add Manual Diff / Slide Review NO; Basophils Absolute Auto 0 /uL (0-100); Basophils Percent Auto 0.4 % (0-2); Eosinophils Absolute Auto 300 /uL (0-450); Eosinophils Percent Auto 5.1 % (2-4); Hematocrit 41.9 % (41-53); Hemoglobin 14.3 g/dL (13.5-17.5); Lymphocytes Absolute Auto 1000 /uL (1100-4500); Lymphocytes Percent Auto 20.2 % (25-40); Mean Corpuscular HGB Conc 34.1 % (30-36); Mean Corpuscular Volume 93.9 fL (80-100); Monocytes Absolute Auto 800 /uL (0-900); Monocytes Percent Auto 15.5 % (3-14); Neutrophils Absolute Auto 3000 /uL (1500-7000); Neutrophils Percent Auto 58.8 % (50-75); Platelet Count 122 X10^3/uL (150-400); Red Blood Cell Count 4.46 X10^6/uL (4.5-5.9); Red Cell Distribution Width 13.2 % (11.6-14.8)
[2023-04-18 08:25] LABS: Alanine Aminotransferase 21 IU/L (<50); Albumin 3.7 g/dL (3.5-5.0); Albumin Globulin Ratio 1.8 (1.0-2.8); Alkaline Phosphatase 68 U/L (38-126); Aspartate Aminotransferase 26 IU/L (17-59); BUN Creatinine Ratio 26.5 (6-22); Blood Urea Nitrogen 27 mg/dL (9-20); Calcium 8.9 mg/dL (8.4-10.2); Carbon Dioxide 26 mmol/L (22-32); Chloride 108 mmol/L (98-107); Cholesterol 168 mg/dL (140-199); Estimated Glomerular Filt Rate > 60 mL/min (>60); Globulin 2.1 g/dL (1.7-4.1); Glucose 85 mg/dL (80-110); HDL Cholesterol 37 mg/dL (40-60); HEMOLYSIS < 15 (0-50); LDL Cholesterol Calculated 92 mg/dL (<100); Potassium 4.3 mmol/L (3.4-5.1); Sodium 140 mmol/L (137-145); Total Protein 5.8 g/dL (6.3-8.2); Triglycerides 195 mg/dL (35-150)
[2023-04-18 08:41] LABS: TSH w/ Reflex to FT4 5.85 uIU/mL (0.47-4.68)
[2023-04-18 09:06] LABS: Free T4, Direct Thyroxine 0.94 ng/dL (0.78-2.19)
== END ==
PROVIDERS: PCP Family Medicine; Referring Provider Family Medicine; Visit Provider Family Medicine
DX: I48.91 Unspecified atrial fibrillation (principal); E78.5 Hyperlipidemia, unspecified; C85.90 Non-Hodgkin lymphoma, unspecified, unspecified site
CPT/HCPCS: 36415; 80053; 80061; 84439; 84443; 85025

== ENCOUNTER → 2023-05-20 14:43 | Outpatient (CLI) | payer OTHER, SELFPAY ==
[2023-05-20 15:43] LABS: Free T4, Direct Thyroxine 0.85 ng/dL (0.78-2.19)
[2023-05-20 15:57] LABS: Thyroid Stimulating Hormone 2.89 uIU/mL (0.47-4.68)
== END ==
PROVIDERS: PCP Family Medicine; Referring Provider Family Medicine; Visit Provider Family Medicine
DX: R79.89 Other specified abnormal findings of blood chemistry (principal)
CPT/HCPCS: 36415; 84439; 84443

== ENCOUNTER → 2023-08-28 13:22 | Outpatient (CLI) | payer OTHER, SELFPAY | LOC: CAR 13:23 | PROVIDERS: PCP Family Medicine; Referring Provider Family Medicine; Visit Provider Family Medicine | DX: I48.91 Unspecified atrial fibrillation (principal) | CPT/HCPCS: 93246 ==

== ENCOUNTER → 2024-01-01 15:01 | Outpatient (CLI) | payer OTHER, SELFPAY ==
--- NOTE | 2024-01-01 23:31 | DI.NM.S_ITS ---
DATE OF SERVICE: 01/01/2024 EXERCISE STRESS TEST INDICATIONS: Paroxysmal atrial fibrillation. CARDIAC STRESS: The patient underwent exercise stress test under the supervision of an attending staff. The patient walked on [place] protocol for 7 minutes and 21 seconds, achieved maximum heart rate of 140 beats per minute, which was 101% of target heart rate. Resting blood pressure 108/78 and peak blood pressure 186/86 mmHg. DI -41%. 10.1 METS of workload. 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 During stress, no convincing ischemic changes. The patient had some occasional PVCs. Around 2 minutes and 50 seconds into the recovery, the patient developed atypical atrial flutter; however, rate remained controlled. Moderate shortness of breath during exercise. No chest pain. CONCLUSION: Exercise stress test is negative for inducible ischemia. Excellent exercise tolerance. The patient is 83 years old. DI -41%. 10.1 METS of workload. Baseline rhythm sinus with bifascicular block. During stress, no convincing ischemic changes. Occasional PVCs. No anginal symptoms. However in recovery, the patient developed atypical atrial flutter and at that time, ventricular rate was controlled. As far as exercise stress test is concerned, this is a low-risk exercise stress test. Alexis Singh - SAVI/liat/ZENY doc#: [id number]/job#: [id number] dd: 01/01/2024 17:05:00 dt: 01/01/2024 22:45:00 DICTATING /COPIES TO: Christina Lira MD COPIES MNE: EMEKA;
== END ==
PROVIDERS: PCP Family Medicine; Referring Provider Internal Medicine; Visit Provider Internal Medicine
DX: I48.0 Paroxysmal atrial fibrillation (principal)
CPT/HCPCS: 93017

== ENCOUNTER → 2024-04-23 07:10 | Outpatient (CLI) | payer MEDICARE, SELFPAY ==
[2024-04-23 08:45] LABS: Add Manual Diff / Slide Review NO; Basophils Absolute Auto 0 /uL (0-100); Basophils Percent Auto 0.3 % (0-2); Eosinophils Absolute Auto 200 /uL (0-450); Eosinophils Percent Auto 3.8 % (2-4); Hematocrit 44.4 % (41-53); Lymphocytes Absolute Auto 900 /uL (1100-4500); Lymphocytes Percent Auto 20.6 % (25-40); Mean Corpuscular HGB Conc 33.7 % (30-36); Mean Corpuscular Hemoglobin 32.1 PG (26-34); Mean Corpuscular Volume 95.2 fL (80-100); Monocytes Absolute Auto 700 /uL (0-900); Monocytes Percent Auto 16.3 % (3-14); Neutrophils Absolute Auto 2600 /uL (1500-7000); Platelet Count 110 X10^3/uL (150-400); Red Blood Cell Count 4.67 X10^6/uL (4.5-5.9); Red Cell Distribution Width 13.2 % (11.6-14.8); White Blood Cell Count 4.3 X10^3/uL (4.5-11.0)
[2024-04-23 09:03] LABS: Alanine Aminotransferase 30 IU/L (<50); Albumin 3.9 g/dL (3.5-5.0); Albumin Globulin Ratio 2.1 (1.0-2.8); Alkaline Phosphatase 77 U/L (38-126); Aspartate Aminotransferase 31 IU/L (17-59); Bilirubin Total 0.9 mg/dL (0.2-1.3); Blood Urea Nitrogen 27 mg/dL (9-20); Calcium 9.2 mg/dL (8.4-10.2); Carbon Dioxide 25 mmol/L (22-32); Chloride 108 mmol/L (98-107); Estimated Glomerular Filt Rate > 60 mL/min (>60); Globulin 1.9 g/dL (1.7-4.1); Glucose 88 mg/dL (80-110); HEMOLYSIS < 15 (0-50); Potassium 4.5 mmol/L (3.4-5.1); Sodium 138 mmol/L (137-145); Total Protein 5.8 g/dL (6.3-8.2)
[2024-04-23 09:34] LABS: Prostate Specific Antigen Scrn 0.585 ng/mL (0.1-4.0)
[2024-04-23 09:53] LABS: TSH w/ Reflex to FT4 4.74 uIU/mL (0.47-4.68)
[2024-04-23 10:21] LABS: Free T4, Direct Thyroxine 0.93 ng/dL (0.78-2.19)
== END ==
PROVIDERS: PCP Family Medicine; Referring Provider Family Medicine; Visit Provider Family Medicine
DX: N40.1 Benign prostatic hyperplasia with lower urinary tract symptoms (principal); N13.8 Other obstructive and reflux uropathy; Z12.5 Encounter for screening for malignant neoplasm of prostate; I48.91 Unspecified atrial fibrillation; C85.90 Non-Hodgkin lymphoma, unspecified, unspecified site; E78.5 Hyperlipidemia, unspecified
CPT/HCPCS: 36415; 80053; 84439; 84443; 85025; G0103

== ENCOUNTER → 2024-08-30 06:28 | Outpatient (CLI) | payer MEDICARE, SELFPAY ==
--- NOTE | 2024-08-30 06:30 | DI.ECHO.S_ITS ---
[facility] : : [address] : : [place] : : [id number] : : Phone: [phone] Echocardiogram Report + + :Name: KIM CHAUDHARI Study Date: 08/30/2024 Height: 73 in : :[facility] ReadingLocation: Weight: 190 lb : : Gender: Male BSA: 2.1 m2 : :: 1940 Age: 83 yrs BP: 126/71 mmHg: :Reason For Study: PROXYSMAL ATRIAL FIBRILLATION : :Ordering Physician: UTE LEVINE Performed By: Lisette Stoll : :Referring: UTE LEVINE : + + Interpretation Summary 1. Left ventricular contractility is normal. Estimate ejection fraction is greater than 60% with no segmental wall motion abnormalities. No LVH. Normal diastolic function. 2. The right ventricular contractility is normal. 3. All cardiac chambers are of normal size. 4. Trace to mild aortic insufficiency. 5. Trace to mild pulmonic insufficiency. 6. Trace to mild mitral insufficiency. 7. No obvious intracardiac shunts. 8. No obvious intracardiac masses nor thrombi. 9. No hemodynamically significant pericardial effusion. 10. Low right-sided filling pressures. Conclusion: Normal biventricular function with trace to mild valvular insufficiencies. When compared with previous echocardiogram, no significant changes have occurred. Procedure: A two-dimensional transthoracic echocardiogram with color flow and Doppler was performed. The study quality was technically adequate. Comparison is made with the echocardiogram of 03/28/2022. The patient was in sinus bradycardia with heart rates between 44-57 bpm during the exam. Left Ventricle: The left ventricle is normal in size and wall thickness. The ejection fraction is estimated to be 60-65%. Diastolic parameters suggest a relaxation abnormality of the left ventricle, consistent with probable normal filling pressures. Right Ventricle: The right ventricle is normal in size and function. Atria: The left atrial size is normal. Right atrial size is normal. There is no Doppler evidence for an interatrial shunt. Mitral Valve: The mitral valve leaflets appear mildly thickened, but open well. There is a flat closure plane of the the mitral valve leaflets. There is trace mitral regurgitation. The mitral regurgitant jet is eccentrically directed. Aortic Valve: The aortic valve is trileaflet. The aortic valve opens well. There is no aortic valve stenosis. There is mild aortic regurgitation. Tricuspid Valve: The tricuspid valve leaflets are thin and pliable. There is trace tricuspid regurgitation. Pulmonary artery pressures cannot be estimated because of the lack of a measurable TR jet velocity. Pulmonic Valve: The pulmonic valve leaflets are thin and pliable; valve motion is normal. There is mild pulmonic regurgitation. Great Vessels: The aortic root is normal size. The dimensions of the ascending aorta are normal. The IVC is of normal diameter and collapses greater than 50% with a sniff. This suggests a low right atrial pressure of 3 mm Hg. Pericardium/ Pleura There is no pericardial effusion. There is no pleural effusion. MMode/2D Measurements & Calculations LVIDd: 4.3 cm LVOT diam: 2.2 cm LVIDs: 2.5 cm Ao root diam: 2.6 cm FS: 41.2 % asc Aorta Diam: 3.2 cm IVSd: 0.73 cm Ao Arch Diam (Prox Trans): 2.9 cm LVPWd: 0.75 cm LV curran. diameter/BSA (cm/m^2): 2.1 LV sys. diameter/BSA (cm/m^2): 1.2 LA A2 area: 16.0 cm2 RA long axis: 4.3 cm LA A4 area: 12.0 cm2 RA area: 11.3 cm2 LA length (vol): 4.8 cm RA vol: 25.4 ml LA vol: 33.5 ml RA : 12.1 ml/m2 LA vol index: 15.9 ml/m2 IVC diam: 1.6 cm RVD1 (basal): 3.8 cm RVD2 (mid): 3.1 cm TAPSE: 2.9 cm Doppler Measurements & Calculations Ao V2 max: 142.7 cm/sec LVOT Max Stefan: 124.1 cm/sec Ao V2 mean: 101.4 cm/sec LV V1 max P.2 mmHg Ao max P.1 mmHg LV V1 VTI: 27.8 cm Ao mean P.5 mmHg GUCCI(I,D): 3.0 cm2 Ao V2 VTI: 34.2 cm GUCCI(V,D): 3.2 cm2 sev ratio: 0.81 GUCCI indexed to BSA (cm^2/m^2): 1.4 MV E max stefan: 101.5 cm/sec PA V2 max: 75.9 cm/sec MV A max stefan: 75.8 cm/sec PA V2 mean: 55.0 cm/sec MV E/A: 1.3 PA mean P.3 mmHg Med Peak E' Stefan: 10.0 cm/sec PA pr(Accel): 17.3 mmHg E/E' med: 10.1 Lat Peak E' Stefan: 12.7 cm/sec E/E' lat: 8.0 E/e' average: 9.0 MV dec time: 0.24 sec SV(TYRELL): 102.3 ml Reading Physician:MARIUSZ
== END ==
PROVIDERS: PCP Family Medicine; Referring Provider Internal Medicine; Visit Provider Internal Medicine
DX: I48.0 Paroxysmal atrial fibrillation (principal); I35.1 Nonrheumatic aortic (valve) insufficiency; I37.1 Nonrheumatic pulmonary valve insufficiency
CPT/HCPCS: 93306

== ENCOUNTER → 2024-10-13 11:35 | Outpatient (CLI) | payer MEDICARE, SELFPAY | PROVIDERS: PCP Family Medicine; Visit Provider Urology | DX: N40.1 Benign prostatic hyperplasia with lower urinary tract symptoms (principal); N13.8 Other obstructive and reflux uropathy; Z12.5 Encounter for screening for malignant neoplasm of prostate; Z68.25 Body mass index [BMI] 25.0-25.9, adult | CPT/HCPCS: 81002; 87086; 99214 ==

== ENCOUNTER → 2024-11-22 08:55 | Outpatient (CLI) | payer MEDICARE, SELFPAY ==
--- NOTE | 2024-11-22 08:57 | DI.RAD.S_ITS ---
PROCEDURE: XR WRIST LT MIN 3V INDICATIONS: left wrist pain TECHNIQUE: 4 views of the wrist were acquired. COMPARISON: None. FINDINGS: Bones: No fractures or dislocations. No suspicious bony lesions. Soft tissues: No suspicious soft tissue calcifications. IMPRESSION: No acute bony abnormality. Dictated by: Roberto Seo M.D. on 11/24/2024 at 5:58 Approved by: Roberto Seo M.D. on 11/24/2024 at 5:58
== END ==
LOC: RAD 08:56
PROVIDERS: PCP Family Medicine; Referring Provider Family Medicine; Visit Provider Family Medicine
DX: M25.532 Pain in left wrist (principal)
CPT/HCPCS: 73110

== ENCOUNTER 2024-11-26 23:34 | Emergency (ER) | payer MEDICARE, SELFPAY ==
[2024-11-26 23:43] VITALS: BP 130/82; PULSE 86; RESP 16; TEMP 36.6; O2SAT 97; BMI 25.0
[2024-11-27] VITALS (7 sets, daily range): BP systolic 121–140; BP diastolic 82–94; PULSE 85–138; RESP 20; O2SAT 96–100
--- NOTE | 2024-11-27 00:50 | ED.MALEGU ---
HPI - Male Genitourinary General Chief complaint: Urogenital-Male Stated complaint: Plugged urinary catheter, bleeding, blood clots Time Seen by Provider: 11/27/24 00:00 Source: patient Mode of arrival: Ambulatory History of Present Illness HPI Narrative: 84-year-old male status post Aquablation prostate procedure [address] Kennedy, had initial catheter that was removed, earlier today he was unable to urinate, blood in catheter, went to ED [facility] where CT abdomen and pelvis imaging was done and patient had 2 bags of three-way catheter irrigation and was sent home. Through the day having ongoing bleeding. He felt like he was unable to urinate again this evening. No fevers or chills. No flank pain. He takes Eliquis chronic anticoagulation. Related Data Home Medications ?Medication ?Instructions ?Recorded ?Confirmed magnesium 250 mg tablet 250 mg PO DAILY 07/31/22 11/26/24 multivitamin (Daily Multi-Vitamin 1 tab PO DAILY 04/17/23 11/26/24 tablet) Previous Rx's ?Medication ?Instructions ?Recorded apixaban 5 mg tablet (Eliquis) 5 mg PO BID #180 tabs 11/22/24 atorvastatin 10 mg tablet (Lipitor) 10 mg PO QPM #90 tabs 11/22/24 sotalol 80 mg tablet 40 mg (1/2 x 80 mg) PO BID #90 tabs 11/22/24 Allergies Allergy/AdvReac Type Severity Reaction Status Date / Time No Known Drug Allergies Allergy Verified 11/26/24 23:42 Patient History Medical History Paroxysmal A-fib Hyperlipidemia Nocturia BPH w urinary obs/LUTS Cancer Cough Vision disorder Hearing deficit Asthma Depression Bipolar disorder Peripheral neuropathy (~2009) Plantar fasciitis (~1999) Chronic back pain Mumps Measles Chicken pox Thrombocytopenia (~2007) Tinnitus (~2009) Hearing loss (~2011) Benign prostatic hyperplasia Hemorrhoid (~2003) Colon polyps (~2009) Skin cancer (~2011) Lymphoma (~2008) Cramp of both lower extremities (12/27/15) Surgical History H/O vasectomy Anesthesia History of vein stripping (~2005) Status post colonoscopy (~2009) Status post colonoscopy (~2003) Family History Sister Age: 77 Cancer Sister Age: 74 Myelofibrosis Sarcoidosis Bone disease Father Cancer Mother Cancer Social History marital status: number of children: 0 household members: spouse occupational status: previously employed Previous occupational history: forester Smoking Status: Never smoker alcohol intake: former substance use type: does not use caffeine: Yes Type(s) of exercise: walking and bicycling frequency: 3-4 times per week Smoking Status: Never smoker Exam Narrative Exam Narrative: GENERAL: Well-developed patient, in mild distress. HEAD: Atraumatic. Normocephalic. EYES: Pupils equal round and reactive. Extraocular motions intact. No scleral icterus. No injection or drainage. ENT: Nose without bleeding, purulent drainage. Airway patent. NECK: Trachea midline. CARDIOVASCULAR: Regular rate and rhythm without murmurs, gallops, or rubs. RESPIRATORY: Clear to auscultation. Breath sounds equal bilaterally. No wheezes, rales, or rhonchi. GASTROINTESTINAL: Abdomen soft, non-tender, nondistended. Genitourinary: Trans urethral catheter in place, with bright red blood in tubing, no clots, current irrigation in progress. EXTREMITIES: No edema or joint tenderness. BACK: Nontender without deformity or crepitance. No flank tenderness. NEURO: AOx3. Motor functions grossly nonfocal. SKIN: No rash or erythema of visible areas Initial Vital Signs Initial Vital Signs: Vital Signs Temperature 97.8 F 11/26/24 23:43 Pulse Rate 86 11/26/24 23:43 Respiratory Rate 16 11/26/24 23:43 Blood Pressure 130/82 11/26/24 23:43 Pulse Oximetry 97 11/26/24 23:43 Oxygen Delivery Method Room Air 11/26/24 23:43 Course Orders Ordered: Discontinued Medications Lorazepam (Lorazepam 0.5 Mg Tablet) 2 mg PO NOW ONE Stop: 11/27/24 07:13 Last Admin: 11/27/24 07:19 Dose: 2 mg Documented By: AB Vital Signs Vital signs: Vital Signs - 8 hr 11/27/24 07:22 Pulse Rate 108 H Blood Pressure 126/92 H Pulse Oximetry 99 Oxygen Delivery Method Room Air MDM - Male Genitourinary Lab Data Attestation: I reviewed the patient's lab results. Lab results narrative: White blood cell count 7700, hemoglobin 15.1, platelets 122,000. BUN 29 with creatinine 0.93 normal renal function. Glucose 113. Electrolytes normal, serum CO2 normal. Liver functions normal. INR 1.2 normal range. 11/27/24 02:46 11/27/24 02:46 Labs: Lab Results 11/27/24 Range/Units 02:46 WBC 7.7 (4.5-11.0) X10^3/uL RBC 4.73 (4.5-5.9) X10^6/uL Hgb 15.1 (13.5-17.5) g/dL Hct 44.0 (41-53) % MCV 92.9 (80-100) fL MCH 32.0 (26-34) PG MCHC 34.4 (30-36) % RDW 13.3 (11.6-14.8) % Plt Count 122 L (150-400) X10^3/uL Neut % (Auto) 69.3 (50-75) % Lymph % (Auto) 9.7 L (25-40) % [place] % (Auto) 16.6 H (3-14) % Eos % (Auto) 3.1 (2-4) % Baso % (Auto) 1.3 (0-2) % Neut # (Auto) 5400 (9824-4186) /uL Lymph # (Auto) 800 L (9779-1589) /uL [place] # (Auto) 1300 H (0-900) /uL Eos # (Auto) 200 (0-450) /uL Baso # (Auto) 100 (0-100) /uL PT 13.1 H (9.4-12.5) SECONDS INR 1.2 (0.9-1.3) Sodium 139 (137-145) mmol/L Potassium 4.2 (3.4-5.1) mmol/L Chloride 104 (98-107) mmol/L Carbon Dioxide 26 (22-32) mmol/L BUN 29 H (9-20) mg/dL Creatinine 0.97 (0.66-1.25) mg/dL Estimated GFR > 60 (>60) mL/min BUN/Creatinine Ratio 29.9 H (6-22) Glucose 113 H (70-99) mg/dL Calcium 9.2 (8.4-10.2) mg/dL Total Bilirubin 0.9 (0.2-1.3) mg/dL AST 29 (17-59) IU/L ALT 19 (<50) IU/L Alkaline Phosphatase 90 (38-126) U/L Total Protein 6.6 (6.3-8.2) g/dL Albumin 4.2 (3.5-5.0) g/dL Globulin 2.4 (1.7-4.1) g/dL Albumin/Globulin Ratio 1.8 (1.0-2.8) MDM Narrative Medical decision making narrative: 84-year-old male on chronic Eliquis anticoagulation, status post Aquablation prostate surgery one month ago, urinary retention symptoms earlier today presented to outside facility ED [place], CT abdomen and pelvis imaging done there, had irrigation 2 bags, sent home with [address]. Again feeling that he is unable to urinate. Bright red blood in urinary catheter, flushing then CBI to be initiated. Labs pending. Request for outside records [facility]. Keep NPO. Flushed, with bright red blood flow and occasional clot, bladder irrigation initiated via 24 Korean 3-way catheter placed yesterday from [facility]. Lab data: White blood cell count 7700, hemoglobin 15.1, platelets [id number]. BUN 29 with creatinine 0.93 normal renal function. Glucose 113. Electrolytes normal, serum CO2 normal. Liver functions normal. INR 1.2 normal range. Records review: CT Abdomen Pelvis with IV contrast dictated report from outside facility 11/26/2024, 9:00 p.m., [facility]. Impressions: ?Stallings catheter in appropriate position. Diffuse hypoattenuation of context in the urinary bladder lumen, consistent with hemorrhage. Small foci of gas in the urinary bladder lumen, most likely iatrogenic, however can be seen with infection. No extraluminal gas or free fluid.? See radiology copy report. No [facility] ED visit information yet received. 3-way urinary catheter 20 Korean larger catheter placed, manual flushing by RN, then resumption CBI. 0500, still having bright red blood flow with CBI after two large bags. Consider transfer for cautery or other urology intervention. Urology not available here, listed on-call at [facility] this weekend, will contact urology at [facility]. 529, case discussed with intake, await call back from Urology. 544, case discussed with [facility] urology Dr. Ames, who can consult, no beds, wait listed there. Will start broader bed search. [facility] reports [facility] has urology but on surgical services divert. Other facilities being queried. 629, bed now available [facility] accepting, EMS transport to be arranged [facility] arrangements for continued bladder irrigation during transport. Keep NPO. Critical Care Time Critical Care Time Critical Care Time: Yes Total Critical Care Time: 35 Attestation: The high probability of a clinically significant, sudden or life threatening deterioration of the [genitourinary, renal] system(s) required my full and direct attention, intervention and personal management. The aggregate critical care time was [35] minutes. This time is in addition to time spent performing reported procedures but includes the following: [x] Data Review and interpretation [x] Patient assessment and monitoring of vital signs [x] Documentation [x] Medication orders and management Discharge Plan Departure Patient Disposition: [facility] Clinical Impression: Gross hematuria, Chronic anticoagulation Prescriptions: No Action multivitamin [Daily Multi-Vitamin] Tablet 1 tab PO DAILY atorvastatin [Lipitor] 10 mg tablet 10 mg PO QPM Qty: 90 3RF Eliquis 5 mg tablet 5 mg PO BID Qty: 180 3RF sotalol 80 mg tablet 40 mg PO BID Qty: 90 3RF magnesium 250 mg tablet 250 mg PO DAILY Referrals: Flakito Oliver MD [Primary Care Provider, Family Practice]
--- NOTE | 2024-11-27 01:46 | PC.NURSE ---
Manual Flush Sterile Water 1000 ml. Pt tolerated well. Clots continue to form, will hang continuous fluids at this time.
--- NOTE | 2024-11-27 02:37 | PC.NURSE ---
Changed urinary catheter size at this time due to clots. See new order
[2024-11-27 03:00] LABS: Add Manual Diff / Slide Review NO; Hematocrit 44.0 % (41-53); Hemoglobin 15.1 g/dL (13.5-17.5); Lymphocytes Absolute Auto 800 /uL (1100-4500); Mean Corpuscular HGB Conc 34.4 % (30-36); Mean Corpuscular Hemoglobin 32.0 PG (26-34); Mean Corpuscular Volume 92.9 fL (80-100); Platelet Count 122 X10^3/uL (150-400)
[2024-11-27 03:05] LABS: INR 1.2 (0.9-1.3); Prothrombin Time 13.1 SECONDS (9.4-12.5)
[2024-11-27 03:09] LABS: Alanine Aminotransferase 19 IU/L (<50); Albumin 4.2 g/dL (3.5-5.0); Albumin Globulin Ratio 1.8 (1.0-2.8); Alkaline Phosphatase 90 U/L (38-126); Blood Urea Nitrogen 29 mg/dL (9-20); Calcium 9.2 mg/dL (8.4-10.2); Carbon Dioxide 26 mmol/L (22-32); Chloride 104 mmol/L (98-107); Estimated Glomerular Filt Rate > 60 mL/min (>60); Globulin 2.4 g/dL (1.7-4.1); Glucose 113 mg/dL (70-99); HEMOLYSIS < 15 (0-50); Potassium 4.2 mmol/L (3.4-5.1); Sodium 139 mmol/L (137-145); Total Protein 6.6 g/dL (6.3-8.2)
--- NOTE | 2024-11-27 04:00 | PC.NURSE ---
Catheter bag changed due to unable to empty from clots. Will continue bladder irrigation. Patient advised to call nurse if bladder starts to feel full or uncomfortable.
--- NOTE | 2024-11-27 05:33 | PC.NURSE ---
pt took his home night meds of sotolol and lipitor
--- NOTE | 2024-11-27 06:02 | PC.NURSE ---
Bed State Update Spoke to Kaitlynn Joseph - potential bed availability in the morning when discharges occur [facility] waitlisted the pt but encouraged to call other hospitals Prov/Brooklynn - Jeremy stated they currently have 13 patients boarding [facility] - awaiting a callback
--- NOTE | 2024-11-27 07:33 | PC.NURSE ---
June RN from NOC shift attempted to give report, staff unable to accept. They state they will call back and speak with charge nurse to get report.
== END 2024-11-27 07:27 | disposition short-term general hospital (02) ==
PROVIDERS: Emergency Medicine; Emergency Provider Emergency Medicine; PCP Family Medicine
DX: R31.0 Gross hematuria (principal); T83.9XXA Unspecified complication of genitourinary prosthetic device, implant and graft, initial encounter; Z79.01 Long term (current) use of anticoagulants
CPT/HCPCS: 36415; 80053; 85025; 85610; 99284; 99291

== ENCOUNTER → 2024-12-01 13:49 | Outpatient (CLI) | payer MEDICARE, SELFPAY | PROVIDERS: PCP Family Medicine; Visit Provider Urology | DX: R31.0 Gross hematuria (principal); N40.1 Benign prostatic hyperplasia with lower urinary tract symptoms; N13.8 Other obstructive and reflux uropathy | CPT/HCPCS: 87086 ==

== ENCOUNTER 2025-01-25 07:53 | Outpatient (RCR) | payer MEDICARE, SELFPAY ==
--- NOTE | 2025-01-26 13:04 | PT.OIE ---
Current Diagnoses Overactive bladder (01/25/25) Past Medical History (Last Reviewed 12/15/24 @ 09:48 by Michele Kennedy DO) Asthma Benign prostatic hyperplasia Bipolar disorder BPH w urinary obs/LUTS Cancer Chicken pox Chronic back pain Colon polyps (~2009) Cough Cramp of both lower extremities (12/27/15) Depression Hearing deficit Hearing loss (~2011) Hemorrhoid (~2003) Hyperlipidemia Lymphoma (~2008) Measles Mumps Nocturia Paroxysmal A-fib Peripheral neuropathy (~2009) Plantar fasciitis (~1999) Skin cancer (~2011) Thrombocytopenia (~2007) Tinnitus (~2009) Vision disorder Past Surgical History (Last Reviewed 12/15/24 @ 09:48 by Michele Kennedy DO) Anesthesia H/O vasectomy History of vein stripping (~2005) Status post colonoscopy (~2003) Status post colonoscopy (~2009) Visit Care Team Role Provider Type Flakito Oliver MD Family Provider Physician Primary Care Provider Specialty: Family Practice Address: [address] [place] [address], [facility] [address], [address] Email: [email or web address] Michele Kennedy DO Attending Provider Physician Referring Provider Specialty: Urology Address: [address] [place] [address], [id number] Fax: Email: [email or web address] Therapy Initial Evaluation PT OP: Pelvic Health Start: 01/25/25 08:13 Freq: Status: Active Protocol: Document 01/25/25 08:18 [facility] (Rec: 01/25/25 08:41 [facility] [id number]) Out-Patient Physical Therapy Visit Information Visit Information Visit Type Initial Evaluation Visit Start Time 08:15 Visit Stop Time 09:00 Visit Number 1 Evaluation Information Evaluation Date 01/25/25 Current Condition History of Current Condition Onset Date 3 months ago Current Complaints urinary urgency/frequency History of Current pt had aquablation surgery 2-3 months ago and he did Condition well for a month, he then had a bad bleed and he was experiencing clotting. He reports he was sent to . When he got out of the [facility] he notes he had no control over his bladder and he was using depends. He now notes he is doing much better and is no longer using depends. Before the aquablation he was having leakage of urine with urgency for about a year prior to the surgery. He is now taking Gemtesa medication and it is controlling his urgency. Most days there is no leaking now Night time symptoms after aquablation he was still waking up 7-8 times per night and now he is up every couple of hours (3-4 times per night)instead of every hour. Day time voiding is 6 times per day with a improved urinary flow. Alexis reports he didn't want to cx today's PT appt but that he isn't sure he needs PT any more as he is doing so much better and he feels he will continue to make improvements Patient Questionnaires Pelvic Pain and Urgency/Frequency Patient Symptom Scale Pelvic Pain Score 5 Pelvic Floor Assessment Urine Pelvic Floor Surgery Yes Urinary Symptoms Urge Sensation Other Urinary pt was experiencing significant leakage and bleeding Symptoms following surgery. Now he notes leakage has been controlled for the most part and he is doing much better with time between voids. He still gets up at night but it is down to 3 times per night instead of every hour Contraction Ability Voluntary Moderate Contraction Voluntary Relaxation Moderate Physical Therapy Assessment Assessment Summary Assessment Alexis is a 84 year old male referred to PT for urinary urgency and frequency. Upon our conversation today he is feeling he is doing so much better and the symptoms he has having have significantly decreased. Alexis underwent aquablation surgery and then experienced bleeding and clotting approx 1 month post surgery. He was sent to for further work up. Once release he was experiencing significant urinary leakage, urgency, and nocturia. Per his report he was then started on Gemtesa and over time his symptoms have improved over time. He reports he is currently voiding approx 6 times per day and is down to 3 times voiding per night ( it was every hour) He is feeling very encouraged with his progress and is not feeling he needs PT at this time. I did review bladder irritants with him and we discussed fluid intake and adding in water prior to his juice in the AM. At this point Alexis is feeling that he is doing much better and he does not require PT at this time. Should he decide he needs PT at a later date I am happy to work with him. Physical Therapy Plan Discharge Physical Therapy Discharge Reasons Patient Request Discharge Comments DC due to pt's symptoms resolving prior to he PT appt
== END 2025-01-27 08:30 | disposition home or self-care (01) ==
LOC: PHYS 07:53
PROVIDERS: Family Provider Family Medicine; PCP Family Medicine; Referring Provider Urology; Visit Provider Urology
DX: N32.81 Overactive bladder (principal)
CPT/HCPCS: 97162